=== PATIENT | male | born 1995 | race Caucasian/White ===

== ENCOUNTER 2024-11-20 08:00 | Inpatient (IN) | payer MEDICAID, OTHER ==
[~2024-11-20] VITALS: Ht 180.3 cm; Wt 68.5 kg
[~2024-11-20 08:00] MED LIST: LITH600C5 PO; OLAN10TA74 PO
[2024-11-20 08:26] VITALS: O2SAT 100
[2024-11-20 09:22] LABS: COVID AG,FIA SOURCE NASAL SWAB
[2024-11-20 09:26] LABS: BASOPHILS % (AUTO) 0.6 % (0.0-2.0); EOSINOPHILS % (AUTO) 2.8 % (1.0-6.0); HEMATOCRIT 43.8 % (41-53); HEMOGLOBIN 15.1 g/dL (13.5-17.5); LYMPHOCYTES # (AUTO) 2.7 K/uL (1.0-4.8); LYMPHOCYTES % (AUTO) 27.9 % (22.0-44.0); MEAN CORPUSCULAR HEMOGLOBIN 32.2 pg (26.0-34.0); MEAN CORPUSCULAR HGB CONC 34.4 G/dL (31.0-37.0); MEAN CORPUSCULAR VOLUME 94 fL (80-100); MONOCYTES # (AUTO) 0.7 K/uL (0.1-1.0); MONOCYTES % (AUTO) 7.2 % (2.0-9.0); NEUTROPHILS # (AUTO) 5.9 K/uL (1.8-7.7); NEUTROPHILS % (AUTO) 61.5 % (40.0-70.0); PLATELET COUNT (AUTO) 256 K/uL (150-450); RED BLOOD CELL COUNT(AUTO) 4.68 MIL/uL (4.50-5.90); RED CELL DISTRIBUTION WIDTH 13.4 % (11.5-14.5); WHITE BLOOD COUNT (AUTO) 9.6 K/uL (4.5-11.0)
[2024-11-20 09:34] LABS: ANION GAP 9 mmol/L (8-16); CALCIUM, TOTAL 8.4 mg/dL (8.8-10.5); CARBON DIOXIDE 31 mmol/L (22-29); CHLORIDE 98 mmol/L (98-107); CREATININE 1.73 mg/dL (0.60-1.30); GLOMERULAR FILTR. RATE CALC 47 mL/min (>60); GLUCOSE,RANDOM 99 mg/dL (70-110); POTASSIUM 3.5 mmol/L (3.5-5.1); SODIUM SERUM 138 mmol/L (136-145); UREA NITROGEN, BLOOD 23 mg/dL (7-18)
[2024-11-20 09:44] LABS: ALCOHOL, BLOOD (SERUM) < 3 mg/dL (0-10)
[2024-11-20 09:48] LABS: SARS-COV2 (COVID) ANTIGEN,FIA Negative (Negative)
[2024-11-20 10:11] LABS: CREATINE KINASE, TOTAL ONLY 187 U/L (39-308)
[2024-11-20] MEDS ORDERED: ZOLPIDEM TARTRATE 10 MG TABLET PO PRN (10:15)
[2024-11-20] MEDS ORDERED: LORazepam 2 MG TABLET PO PRN (10:15)
[2024-11-20] MEDS ORDERED: OLANZapine 5 MG RAPDIS TABLET PO PRN (10:15)
[2024-11-20 12:57] VITALS: BP 124/83; PULSE 100; RESP 18; TEMP 98.9; O2SAT 98
[2024-11-20] MEDS ORDERED: ACETAMINOPHEN 325 MG TABLET PO PRN (19:00)
[2024-11-20] MEDS ORDERED: BACITRACIN 28 GM OINTMENT TP PRN (19:00)
[2024-11-20] MEDS ORDERED: PETROLATUM,WHITE 28 GM JELLY TP PRN (19:00)
[2024-11-20] MEDS ORDERED: LOPERAMIDE HCL 2 MG CAPSULE PO PRN (19:00)
[2024-11-20] MEDS ORDERED: ALBUTEROL SULFATE HFA 90 MCG/PUFF 8 GM INHALER IH PRN (19:00)
[2024-11-20] MEDS ORDERED: BENZOCAINE/MENTHOL LOZENGE PO PRN (19:00)
[2024-11-20] MEDS ORDERED: ONDANSETRON 4 MG TABLET PO PRN (19:00)
[2024-11-20] MEDS ORDERED: MAG HYDROX/ALUMINUM HYD/SIMETH ES 30 ML SUSPENSION UDCUP PO PRN (19:00)
[2024-11-20] MEDS ORDERED: MAGNESIUM HYDROXIDE SUSPENSION 30 ML UDCUP PO PRN (19:00)
[2024-11-20] MEDS ORDERED: IBUPROFEN 600 MG TABLET PO PRN (19:00)
[2024-11-20] MEDS ORDERED: CloNIDine HCL 0.1 MG TABLET PO PRN (19:00)
[2024-11-20] MEDS ORDERED: OMEPRAZOLE 20 MG CAPSULE PO PRN (19:00)
[2024-11-20] MEDS ORDERED: DOCUSATE SODIUM 100 MG CAPSULE PO PRN (19:00)
[2024-11-20 20:11] VITALS: PULSE 80; RESP 18; TEMP 98; O2SAT 98
[2024-11-20] MEDS: LITHIUM CARBONATE 600 MG CAPSULE PO SCH (20:12)
[2024-11-20] MEDS: OLANZapine 10 MG TABLET PO SCH (20:12)
[2024-11-21 02:27] LABS: APPEARANCE,URINE CLEAR (CLEAR); BILIRUBIN,URINE NEGATIVE (NEGATIVE); COLOR,URINE YELLOW (YELLOW); GLUCOSE, URINE (UA) NEGATIVE (NEGATIVE); KETONES,URINE TRACE mg/dL (NEGATIVE); LEUKOCYTE ESTERASE ,URINE NEGATIVE (NEGATIVE); NITRATE,URINE NEGATIVE (NEGATIVE); OCCULT BLOOD,URINE NEGATIVE (NEGATIVE); PROTEIN,URINE TRACE mg/dL (NEGATIVE); SPECIFIC GRAVITIY, URINE 1.028 (1.003-1.030); UROBILINOGEN,URINE <=1.0 mg/dL (<=1.0)
[2024-11-21 02:34] LABS: ALCOHOL, URINE DRUG SCREEN NEGATIVE (NEGATIVE); AMPHET/METH SCREEN,URINE NEGATIVE (NEGATIVE); BARBITURATE SCREEN, URINE NEGATIVE (NEGATIVE); BENZODIAZEPINES SCREEN,URINE NEGATIVE (NEGATIVE); CANNABINOID SCREEN,URINE NEGATIVE (NEGATIVE); COCAINE SCREEN,URINE NEGATIVE (NEGATIVE); METHADONE SCREEN, URINE NEGATIVE (NEGATIVE); OPIATE SCREEN,URINE NEGATIVE (NEGATIVE); PHENCYCLIDINE SCREEN,URINE NEGATIVE (NEGATIVE)
[2024-11-21 08:28] LABS: BASOPHILS % (AUTO) 0.8 % (0.0-2.0); EOSINOPHILS % (AUTO) 5.6 % (1.0-6.0); HEMATOCRIT 42.5 % (41-53); HEMOGLOBIN 14.8 g/dL (13.5-17.5); LYMPHOCYTES # (AUTO) 3.6 K/uL (1.0-4.8); LYMPHOCYTES % (AUTO) 44.2 % (22.0-44.0); MEAN CORPUSCULAR HEMOGLOBIN 32.5 pg (26.0-34.0); MEAN CORPUSCULAR HGB CONC 34.8 G/dL (31.0-37.0); MEAN CORPUSCULAR VOLUME 94 fL (80-100); MONOCYTES # (AUTO) 0.6 K/uL (0.1-1.0); MONOCYTES % (AUTO) 7.4 % (2.0-9.0); NEUTROPHILS # (AUTO) 3.5 K/uL (1.8-7.7); PLATELET COUNT (AUTO) 236 K/uL (150-450); RED BLOOD CELL COUNT(AUTO) 4.55 MIL/uL (4.50-5.90); RED CELL DISTRIBUTION WIDTH 13.2 % (11.5-14.5); WHITE BLOOD COUNT (AUTO) 8.3 K/uL (4.5-11.0)
[2024-11-21 08:50] LABS: HEMOGLOBIN A1C 4.7 % (3.8-5.6)
[2024-11-21 08:53] LABS: ALANINE AMINOTRANSFERASE 14 U/L (12-78); ALBUMIN 3.4 g/dL (3.4-5.0); ALKALINE PHOSPHATASE 76 U/L (46-116); ANION GAP 3 mmol/L (8-16); ASPARTATE AMINOTRANSFERASE 26 U/L (15-37); CALCIUM, TOTAL 8.7 mg/dL (8.8-10.5); CARBON DIOXIDE 32 mmol/L (22-29); CHLORIDE 99 mmol/L (98-107); CHOL/HDL RATIO 2.5 (4.2-7.3); CHOLESTEROL 153 mg/dL (131-200); CREATININE 1.38 mg/dL (0.60-1.30); GLOMERULAR FILTR. RATE CALC > 60 mL/min (>60); GLUCOSE,RANDOM 157 mg/dL (70-110); HDL CHOLESTEROL 62 mg/dL (40-60); LDL CHOL (CALC.) 76 mg/dL (0-130); PHOSPHORUS 4.6 mg/dL (2.5-4.9); SODIUM SERUM 134 mmol/L (136-145); TOTAL PROTEIN, SERUM 6.4 g/dL (6.4-8.2); TRIGLYCERIDES 73 mg/dL (15-150); UREA NITROGEN, BLOOD 15 mg/dL (7-18)
[2024-11-21 09:46] VITALS: BP 125/85; PULSE 89; RESP 17; TEMP 96.9; O2SAT 96
[2024-11-21 20:17] VITALS: BP 136/95; PULSE 98; RESP 20; TEMP 98.2; O2SAT 98
[2024-11-21] MEDS: OLANZapine 10 MG TABLET PO SCH (20:54)
[2024-11-22 11:10] VITALS: BP 134/95; PULSE 93; RESP 18; TEMP 98.1; O2SAT 98
[2024-11-22 21:16] VITALS: BP 97/60; PULSE 74; RESP 18; TEMP 97.6
[2024-11-23 10:02] VITALS: BP 118/82; PULSE 77; RESP 16; TEMP 98.9
[2024-11-23 21:15] VITALS: BP 102/64; PULSE 85; RESP 18; TEMP 98; O2SAT 98
[2024-11-24 08:54] VITALS: BP 111/62; PULSE 72; RESP 16; TEMP 98.2; O2SAT 97
[2024-11-25 09:51] VITALS: BP 122/68; PULSE 80; RESP 16; TEMP 97.8; O2SAT 98
[2024-11-25 20:40] VITALS: BP 147/81; PULSE 72; RESP 18; TEMP 98.8; O2SAT 100
[2024-11-26 08:45] VITALS: BP 131/93; PULSE 70; RESP 18; TEMP 97.8; O2SAT 97
[2024-11-26 22:11] VITALS: RESP 18
[2024-11-27 13:37] VITALS: BP 139/93; PULSE 85; RESP 18; TEMP 97.8; O2SAT 96
[2024-11-27 21:22] VITALS: BP 122/65; PULSE 94; RESP 18; TEMP 98.6; O2SAT 99
[2024-11-28 10:40] VITALS: BP 104/58; PULSE 72; RESP 16; TEMP 97.3; O2SAT 100
[2024-11-28 21:04] VITALS: RESP 18
[2024-11-29 09:32] VITALS: BP 115/73; PULSE 74; RESP 18; TEMP 96.8; O2SAT 100
[2024-11-29 22:06] VITALS: BP 121/78; PULSE 66; RESP 18; TEMP 98.9; O2SAT 100
[2024-11-30 09:02] VITALS: BP 118/83; PULSE 67; RESP 18; TEMP 97.6; O2SAT 100
[2024-11-30 21:43] VITALS: BP 121/68; PULSE 62; RESP 17; TEMP 97.8; O2SAT 100
[2024-12-01 09:29] VITALS: BP 113/77; PULSE 79; RESP 18; TEMP 97.5; O2SAT 98
[2024-12-01 20:49] VITALS: BP 118/79; PULSE 60; RESP 18; TEMP 98.4; O2SAT 100
[2024-12-02 10:29] VITALS: BP 118/77; PULSE 71; RESP 18; TEMP 97.7; O2SAT 100
[2024-12-02 21:34] VITALS: BP 114/74; PULSE 64; RESP 18; TEMP 97.6; O2SAT 99
[2024-12-03 10:06] VITALS: BP 131/73; PULSE 68; RESP 18; TEMP 97.9; O2SAT 100
[2024-12-03 21:00] VITALS: BP 114/74; PULSE 81; RESP 19; TEMP 97.8; O2SAT 99
[2024-12-04 10:36] VITALS: BP 138/71; PULSE 74; RESP 16; TEMP 97.9; O2SAT 100
[2024-12-04 23:11] VITALS: BP 127/77; PULSE 67; RESP 19; TEMP 96.9; O2SAT 99
[2024-12-05 09:49] VITALS: BP 120/72; PULSE 69; RESP 18; TEMP 98; O2SAT 100
[2024-12-05 20:49] VITALS: BP 133/85; PULSE 75; RESP 18; TEMP 97.5; O2SAT 97
[2024-12-06 10:54] VITALS: BP 119/83; PULSE 83; RESP 18; TEMP 98.1; O2SAT 99
[2024-12-06 21:48] VITALS: BP 127/80; PULSE 87; RESP 17; TEMP 98.3; O2SAT 95
[2024-12-07 09:43] VITALS: BP 117/76; PULSE 59; RESP 18; TEMP 98.9; O2SAT 100
[2024-12-07 21:50] VITALS: BP 128/72; PULSE 74; RESP 16; TEMP 98.2; O2SAT 99
[2024-12-08 10:10] VITALS: BP 123/73; RESP 18; O2SAT 98
== END 2024-12-08 12:00 | disposition home or self-care (01) | DRG 750 ==
LOC: EMS 08:02 → 3EC 11:22 → 3EI 11-25 17:45
PROVIDERS: ADMIT Psychiatry & Neurology Psychiatry; ATTEND Psychiatry & Neurology Psychiatry
PROC: GZ52ZZZ Individual Psychotherapy, Cognitive (ICD-10-PCS; 2024-11-25)
PROC: GZHZZZZ Group Psychotherapy (ICD-10-PCS; principal; 2024-12-06)
DX: F20.0 Paranoid schizophrenia (principal); F10.90 Alcohol use, unspecified, uncomplicated; F41.9 Anxiety disorder, unspecified; G47.00 Insomnia, unspecified; Z20.822 Contact with and (suspected) exposure to COVID-19; Y90.9 Presence of alcohol in blood, level not specified; K59.00 Constipation, unspecified; K21.9 Gastro-esophageal reflux disease without esophagitis; Z96.659 Presence of unspecified artificial knee joint; Z88.8 Allergy status to other drugs, medicaments and biological substances; Z72.0 Tobacco use
CPT/HCPCS: 80048; 80053; 80061; 80178; 80307; 81003; 82550; 83036; 83735; 84100; 85025; 99285; G0480